=== PATIENT | male | born 1960 | race Caucasian/White ===

== ENCOUNTER 2017-05-03 15:38 | Emergency (ER) | payer MEDICARE ==
[~2017-05-03] VITALS: Ht 182.9 cm; Wt 93.0 kg
[~2017-05-03 15:38] MED LIST: ALBU8.5H2 INH; ATOR20TA PO; BUSP10TA35 PO; CARI350T PO; DIVA500T4 PO; LISI10TA5 PO; METH20TA PO; QUET400T3 PO; SERT100T PO
--- NOTE | 2017-05-03 15:40 | NUR ---
PT CAME IN WITH C/O LYMPH NODES SWOLLEN X1 WEEK + NAUSEA. DIFFICULTY SWALLOWING. SEEN BY SURGICAL INSTRUMENT MECHANIC FOR EVAL. VSS. SAFETY AND COMFORT MEASURES PROVIDED. WILL MONITOR.
[2017-05-03] MEDS: IV NS 0.9% 1,000 ML BAG IV ONE (16:10)
--- NOTE | 2017-05-03 16:10 | NUR ---
IV ACCESS STARTED. BLOOD DRAWN FOR LABS. MEDICATED ORDERED.
[2017-05-03] MEDS ORDERED: ONDANSETRON HCL/PF 4 MG/2 ML VIAL ONE (16:16)
[2017-05-03] MEDS: ONDANSETRON HCL/PF 4 MG/2 ML VIAL IVP ONE (16:20)
[2017-05-03 16:23] LABS: BASOPHILS # (AUTO) 0.1 /CMM (0.0-0.2); BASOPHILS % (AUTO) 1.1 % (0.0-2.0); EOSINOPHILS # (AUTO) 0.1 /CMM (0.0-0.7); EOSINOPHILS % (AUTO) 0.7 % (0.0-6.0); HEMATOCRIT 45 % (39-51); HEMOGLOBIN 14.7 g/dL (13.5-17.5); LYMPHOCYTES # (AUTO) 2.6 /CMM (0.8-4.8); LYMPHOCYTES % (AUTO) 24.7 % (20.0-44.0); MEAN CORPUSCULAR HEMOGLOBIN 30 PG (26.0-33.0); MEAN CORPUSCULAR HGB CONC 33 g/dl (31.0-36.0); MEAN CORPUSCULAR VOLUME 92 fL (80-96); MONOCYTES # (AUTO) 1.3 /CMM (0.1-1.30); MONOCYTES % (AUTO) 12.4 % (2.0-12.0); NEUTROPHILS # (AUTO) 6.5 /CMM (1.8-8.9); NEUTROPHILS % (AUTO) 61.1 % (43.0-81.0); PLATELET COUNT (AUTO) 394 /CMM (150-450); RDW COEFFICIENT OF VARIATION 12.4 (11.5-15.0); RED BLOOD CELL COUNT(AUTO) 4.85 MIL/uL (4.5-6.0); WHITE BLOOD COUNT (AUTO) 10.6 K/uL (4.3-11.0)
[2017-05-03 16:36] LABS: CALCIUM, SERUM 9.6 mg/dL (8.5-10.1); CARBON DIOXIDE 30 mmol/L (21-32); CHLORIDE 98 mmol/L (98-107); GLUCOSE 198 mg/dL (74-106); POTASSIUM 4.3 mmol/L (3.5-5.1); SODIUM SERUM 132 mmol/L (136-145); UREA NITROGEN, BLOOD 20 mg/dL (7-18)
[2017-05-03 16:40] LABS: INR 0.95 (0.87-1.13); PROTHROMBIN TIME 9.9 SECS (9.5-12.7)
[2017-05-03 16:43] LABS: ALANINE AMINOTRANSFERASE 21 U/L (12-78); ALBUMIN 3.2 g/dL (3.4-5.0); ALKALINE PHOSPHATASE 86 U/L (46-116); ASPARTATE AMINOTRANSFERASE 25 U/L (15-37); BILIRUBIN,DIRECT 0.1 mg/dL (0.0-0.2); BILIRUBIN,TOTAL 0.4 mg/dL (0.2-1.0); TOTAL PROTEIN, SERUM 7.6 g/dL (6.4-8.2); TROPONIN I < 0.017 ng/mL (0.00-0.056)
[2017-05-03 17:02] LABS: APPEARANCE,URINE Clear (CLEAR); BILIRUBIN,URINE SMALL (NEGATIVE); BLOOD, URINE Trace-intact Ery/uL (NEGATIVE); COLOR,URINE Dark (YELLOW); KETONES,URINE Negative (NEGATIVE); LEUKOCYTE ESTERASE ,URINE Negative (NEGATIVE); NITRITE, URINE Negative (NEGATIVE); PROTEIN,URINE 100 mg/dl (NEGATIVE); UGLUCOSE 100 MG/DL mg/dL (NEGATIVE)
[2017-05-03] MEDS ORDERED: IBUPROFEN 600 MG TABLET PO ONE (17:07)
[2017-05-03] MEDS ORDERED: ACETAMINOPHEN ES 500 MG TABLET ONE (17:07)
[2017-05-03 17:13] LABS: BACTERIA,URINE None seen /HPF (None Seen); SQUAMOUS EPITHELIAL CELL,UR Few /HPF (None Seen); WBC,URINE 0-2 /HPF (0-3)
[2017-05-03 17:14] LABS: MUCUS,URINE Many /LPF (None Seen)
[2017-05-03] MEDS: IBUPROFEN 600 MG TABLET PO ONE (17:19)
[2017-05-03] MEDS: ACETAMINOPHEN ES 500 MG TABLET PO ONE (17:19)
--- NOTE | 2017-05-03 18:05 | NUR ---
IV removed. Catheter intact and site benign. Pressure and 4x4 applied to site. No bleeding noted.
--- NOTE | 2017-05-03 18:05 | NUR ---
Patient discharged to home in stable condition. Written and verbal after care instructions given. Patient verbalizes understanding of instruction.
[2017-05-03 18:06] VITALS: BP 150/78
== END 2017-05-03 18:07 | disposition home or self-care (01) ==
LOC: ER 15:44
DX: B34.9 Viral infection, unspecified (principal); F12.90 Cannabis use, unspecified, uncomplicated; R79.1 Abnormal coagulation profile; I10 Essential (primary) hypertension; F17.200 Nicotine dependence, unspecified, uncomplicated; R13.10 Dysphagia, unspecified; Z88.5 Allergy status to narcotic agent; Z85.89 Personal history of malignant neoplasm of other organs and systems
CPT/HCPCS: 36415; 71010-TC; 80048-TC; 80076-TC; 81000-TC; 83605-TC; 84484-TC; 85025-TC; 85730-TC; 87040-TC; 87400; A4606; J2405; J7030; Z7610

== ENCOUNTER 2022-10-05 12:15 | Emergency (ER) | payer MEDICARE ==
[~2022-10-05] VITALS: Ht 182.9 cm; Wt 89.8 kg
[~2022-10-05 12:15] MED LIST changes: -ALBU8.5H2 INH; +ALBU8.5H8 INH; +LISI10TA29 PO; -LISI10TA5 PO; -QUET400T3 PO; +QUET400T5 PO
--- NOTE | 2022-10-05 12:28 | NUR ---
Note umu in EDM - 10/05/22 at 1250 by WALDO PT ON BED CC CHEST PAIN 8/10 FOR 2 DAYS WITH COUGH. PUT ON MONITOR AND PULSE. MD AT BEDSIDE FOR EVAL . AWAITING FOR ORDERS
--- NOTE | 2022-10-05 12:45 | NUR ---
PT FROM HOME, CC FOR ITCHINESS DUE TO SCABIES FOR 6MOS. WAS GIVEN ALL OVER CREAM BUT NO RELIEF. MD AT BEDSIDE FOR EVAL PUT ON MONITOR AND PULSE,VS ARE WNL
[2022-10-05] MEDS ORDERED: PRED20TA PO (12:54)
[2022-10-05] MEDS ORDERED: prednisoLONE 5 MG/5 ML UDC ONE (12:55)
[2022-10-05] MEDS ORDERED: FAMOTIDINE (20 MG) 20 MG TABLET ONE (12:56)
[2022-10-05] MEDS ORDERED: diphenhydrAMINE HCL 25 MG CAPSULE ONE (12:56)
[2022-10-05] MEDS ORDERED: predniSONE 50 MG TABLET PO ONE (13:00)
[2022-10-05] MEDS ORDERED: FAMOTIDINE (20 MG) 20 MG TABLET PO ONE (13:00)
[2022-10-05] MEDS ORDERED: diphenhydrAMINE HCL 25 MG CAPSULE PO ONE (13:00)
[2022-10-05] MEDS ORDERED: predniSONE 20 MG TABLET ONE (13:06)
--- NOTE | 2022-10-05 13:37 | NUR ---
CALLED [facility] FOR TRANSPORT ETA 1415 PER JOHN.
--- NOTE | 2022-10-05 14:16 | NUR ---
TRANSPORT AT BEDSIDE FOR PICKUP
[2022-10-05 14:30] VITALS: BP 123/77
== END 2022-10-05 14:30 | disposition home or self-care (01) ==
LOC: ER 12:18
DX: R21 Rash and other nonspecific skin eruption (principal); E11.9 Type 2 diabetes mellitus without complications; Z98.890 Other specified postprocedural states; Z79.899 Other long term (current) drug therapy; Z88.5 Allergy status to narcotic agent
CPT/HCPCS: 99284; Q0163; J7512; J7510